=== PATIENT | female | born 1935 | race Caucasian/White ===

== ENCOUNTER 2016-11-11 15:22 | Outpatient (CLI) | payer OTHER ==
--- NOTE | 2016-11-11 15:45 | DIAGNOSTIC IMAGING REPORT ---
PROCEDURE: XR CHEST 2 VIEW INDICATION: ACUTE BRONCHITIS TECHNIQUE: PA and lateral views. COMPARISON: Chest 10/11/2015 and 12/21/2012 FINDINGS: The lungs are clear. Heart size, mediastinum and pulmonary vascularity are normal. Mild tortuosity of the aorta. Severe mid thoracic spine compression fracture which appears old with mild degenerative changes. IMPRESSION: 1. No acute changes 2. Severe mid thoracic spine old compression fracture
== END 2016-11-11 23:00 ==
LOC: LAB SRH 15:22
DX: J20.9 Acute bronchitis, unspecified (principal)

== ENCOUNTER 2016-12-29 10:30 | Outpatient (CLI) | payer OTHER ==
--- NOTE | 2016-12-29 11:58 | DIAGNOSTIC IMAGING REPORT ---
PROCEDURE: XR KNEE 3 VIEWS - LEFT INDICATION: KNEE PAIN TECHNIQUE: Three views. COMPARISON: None. FINDINGS: Osteoarthritis with medial compartment narrowing and osteophyte formation. IMPRESSION: 1. Osteoarthritis left knee
== END 2016-12-29 23:00 ==
LOC: XR SRH 10:30
DX: M17.12 Unilateral primary osteoarthritis, left knee (principal)

== ENCOUNTER 2017-01-01 11:25 | Outpatient (CLI) | payer OTHER ==
--- NOTE | 2017-01-01 14:34 | DIAGNOSTIC IMAGING REPORT ---
PROCEDURE: MR LOWER EXT JOINT WO CONT-LT INDICATION: LEFT KNEE PAIN TECHNIQUE: PD and FAT-SAT PD sagittal and coronal images. FAT-SAT PD axial images. High-resolution T2 sagittal images of the cruciate ligaments. (Total of 6 sequences). COMPARISON: Left knee x-ray 12/29/2016. FINDINGS: Mild spurring of all three joint compartments. Cruciate and collateral ligaments are normal. Contour irregularity and abnormal signal of the lateral meniscus posterior horn suggestive of tear. Minor contour irregularity of the medial meniscus posterior horn, possible tear. Mild chondromalacia the medial compartment. Mild quadriceps and patellar tendinosis. Mild chondromalacia patella. A 4 cm long popliteal cyst. Mild suprapatellar effusion. IMPRESSION: 1. Mild tricompartment osteoarthritic changes 2. Lateral meniscus posterior horn abnormal contour and signal suggestive of a tear. 3. Minor contour irregularity of the medial meniscus posterior horn, possible tear 4. Mild chondromalacia 5. Quadriceps and patellar tendinosis 6. Popliteal cyst 7. Mild suprapatellar effusion
== END 2017-01-01 23:00 ==
LOC: MRI SRH 11:25
DX: M17.12 Unilateral primary osteoarthritis, left knee (principal); M76.52 Patellar tendinitis, left knee; M71.22 Synovial cyst of popliteal space [Baker], left knee; M25.462 Effusion, left knee